=== PATIENT | female | born 1970 | race Caucasian/White ===

== ENCOUNTER 2016-11-16 06:21 | Day surgery (SDC) | payer BC ==
[~2016-11-16 06:21] MED LIST: LIDOCAINE W/ SODIUM BICARB 0.5 ML SYR ONE; Lactated Ringers 2,000 ML PRIMARY IV ONE; Sodium Chloride 0.9% 100 ML IV ONE
[2016-11-16 06:41] LABS: BILIRUBIN,URINE NEGATIVE (NEG); CLARITY,URINE CLEAR (CLEAR); COLOR,URINE YELLOW; GLUCOSE, URINE (UA) NEGATIVE (NEG); NITRATE,URINE NEGATIVE (NEG); OCCULT BLOOD,URINE NEGATIVE (NEG); PH,URINE 5.5 (5.0-8.5); PROTEIN,URINE NEGATIVE (NEG); UROBILINOGEN,URINE 0.2 EU/dL (0.2)
[2016-11-16] MEDS ORDERED: BUPIVACAINE 0.25% W/ EPI - 10 ML VIAL ONE (06:42)
[2016-11-16 06:45] LABS: BACTERIA,URINE MODERATE; RBC,URINE 0-1 /hpf; SQUAMOUS EPITHELIAL CELL,UR MANY
[2016-11-16 06:46] LABS: URINE SAMPLE TYPE CLEAN CATCH URINE
[2016-11-16] MEDS ORDERED: fentaNYL Inj 250 MCG/5 ML VIAL ONE ×2 (07:03→12:09)
[2016-11-16] MEDS ORDERED: LIDOCAINE MPF 2% - 5 ML (20 MG/1 ML) ONE (07:03)
[2016-11-16] MEDS ORDERED: DEXAMETHASONE SOD PHOSPHATE 4 MG/1 ML VIAL ONE (07:03)
[2016-11-16] MEDS ORDERED: MIDAZOLAM 5 MG/1 ML ONE (07:03)
[2016-11-16] MEDS ORDERED: ROCURONIUM 10 MG/1 ML - 5 ML VIAL IVP ONE (07:04)
[2016-11-16 07:08] LABS: HEMATOCRIT 41.1 % (37.0-47.0); HEMOGLOBIN 14.2 g/dL (12.0-16.0)
[2016-11-16] MEDS ORDERED: KETAMINE 100 MG/1 ML - 5 ML ONE (08:12)
[2016-11-16] MEDS ORDERED: HYDROmorphone 2 MG/1 ML ONE (08:12)
[2016-11-16] MEDS ORDERED: NORMAL SALINE 10 ML SYRINGE FLUSH IVP PRN ×2 (08:31→09:21)
[2016-11-16] MEDS ORDERED: PROMETHAZINE 25 MG/1 ML VIAL IM PRN (08:31)
[2016-11-16] MEDS ORDERED: HYDROmorphone 2 MG/1 ML IVP PRN (08:31)
[2016-11-16] MEDS ORDERED: LIDOCAINE HCL 2 % 10 ML JELLY URO-JECT TOPICAL ONE (08:40)
[2016-11-16] MEDS ORDERED: Opium-Belladonna 30-16.2mg 1 EACH SUPP.RECT RECTAL ONE (08:40)
[2016-11-16] MEDS ORDERED: Lactated Ringers 1,000 ML PRIMARY IV SCH (08:45)
[2016-11-16] MEDS ORDERED: SUGAMMADEX SODIUM 200 MG/2 ML VIAL IV ONE (08:55)
[2016-11-16] MEDS ORDERED: KETOROLAC 30 MG/1 ML VIAL ONE (08:55)
[2016-11-16] MEDS ORDERED: ONDANSETRON 4 MG/2 ML VIAL ONE ×2 (08:55→11:31)
[2016-11-16] MEDS ORDERED: Lactated Ringers 2,000 ML PRIMARY IV ONE (09:17)
[2016-11-16] MEDS ORDERED: IBUPROFEN 800 MG TABLET PO PRN (09:21)
[2016-11-16] MEDS ORDERED: Ondansetron ODT Tab 8 MG TAB PO PRN (09:21)
[2016-11-16] MEDS ORDERED: KETOROLAC 30 MG/1 ML VIAL IVP PRN (09:21)
--- NOTE | 2016-11-16 09:26 | OB.OP.NOTE ---
Operative Report Surgeon: Viv Heel Sorter: Jacob Monsivais MD Anesthesia Type: General Anesthesia Provider: Flex Qureshi CRNA Surgery Date: 11/16/16 Preoperative Diagnosis: MMR/Dysmenorrhea Postoperative Diagnosis: Same Procedure: da Rico Hysterectomy/Bilateral Salpingectomy/Cystoscopy Estimated Blood Loss (mL): 50 Fluids: 2200 ml Complications: None Findings at Surgery: Normal size uterus. Tubes with clips applied. No visible evidence of bowel, bladder, or ureter injury. Both ureters ejected urine at cysto, and bladder integrity was confirmed. Indications for the Procedure: MMR/Dysmenorrhea Description of Procedure: See dictated operative report. Plan: Routine post op care and discharge to home.
[2016-11-16 09:52] VITALS: RESP 14
[2016-11-16] MEDS ORDERED: oxyCODONE-ACETAMINOPHEN 5-325 TAB PO ONE ×3 (10:03→11:35)
[2016-11-16] MEDS: oxyCODONE-ACETAMINOPHEN 5-325 TAB PO PRN ×2 (10:05→11:45)
[2016-11-16] MEDS ORDERED: ONDANSETRON 4 MG/2 ML VIAL IVP ONE (11:35)
[2016-11-16] MEDS ORDERED: Lactated Ringers 1,000 ML PRIMARY IV ONE (12:09)
[2016-11-16] MEDS: fentaNYL Inj 100 MCG/2 ML VIAL IVP PRN ×2 (12:15→13:40)
[2016-11-16] MEDS ORDERED: PROMETHAZINE 25 MG/1 ML VIAL IM ONE (13:21)
[2016-11-16] MEDS ORDERED: HYDROcodone-APAP 7.5 MG-325 MG TABLET PO ONE ×2 (13:41→13:44)
[2016-11-16 15:15] VITALS: TEMP 97.9
[2016-11-16] MEDS ORDERED: DOCUSATE 100 MG CAPSULE PO SCH (21:00)
== END 2016-11-16 15:02 | disposition home or self-care (01) ==
LOC: SDSC 06:21
PROVIDERS: ATTEND Obstetrics & Gynecology
DX: N92.1 Excessive and frequent menstruation with irregular cycle (principal); N94.6 Dysmenorrhea, unspecified
CPT/HCPCS: 52000; 58552; 81001; 84703; 85014; 85018; J0694; J1885; J2704; J3010; J1100; J1170; J2001; J2250; J2405; J2550; J7050; J7120

== ENCOUNTER 2016-11-16 21:15 | Inpatient (IN) | payer BC ==
[2016-11-16] MEDS ORDERED: NORMAL SALINE 10 ML SYRINGE FLUSH IVP PRN (21:45)
[2016-11-16] MEDS ORDERED: Sodium Chloride 0.9% 1,000 ML PRIMARY IV ONE (21:45)
[2016-11-16] MEDS ORDERED: PROMETHAZINE 25 MG/1 ML VIAL IM ONE (21:45)
[2016-11-16] MEDS ORDERED: ONDANSETRON 4 MG/2 ML VIAL ONE (21:46)
[2016-11-16] MEDS ORDERED: HYDROmorphone 2 MG/1 ML IVP ONE (21:46)
[2016-11-16] MEDS ORDERED: HYDROmorphone 2 MG/1 ML ONE (21:49)
[2016-11-16 22:04] LABS: BASOPHILS # (AUTO) 0.01 10*3/UL; BASOPHILS % (AUTO) 0.1 % (0-1); EOSINOPHILS # (AUTO) 0 10*3/UL; EOSINOPHILS % (AUTO) 0 % (0-8); HEMATOCRIT 38.3 % (37.0-47.0); HEMOGLOBIN 13.4 g/dL (12.0-16.0); LYMPHOCYTES # (AUTO) 0.58 10*3/uL; MEAN CORPUSCULAR HEMOGLOBIN 30.4 PG (27-31); MEAN CORPUSCULAR VOLUME 86.8 FL (81-99); MEAN PLATELET VOLUME 8.3 FL (7.4-12.2); MONOCYTES # (AUTO) 1.24 10*3/UL (0.3-0.8); MONOCYTES % (AUTO) 6.3 % (5-15); NEUTROPHILS # (AUTO) 17.97 10*3/UL; NEUTROPHILS % (AUTO) 90.5 % (50-80); RED BLOOD COUNT 4.41 10^6/uL (4.20-5.40)
[2016-11-16 22:05] LABS: PLATELET MORPHOLOGY COMMENT NORMAL MORPHOLOGY (NORM); RBC MORPHOLOGY COMMENT NORMAL MORPHOLOGY (NORM); WBC MORPHOLOGY COMMENT NORMAL MORPHOLOGY (NORM)
[2016-11-16 22:14] LABS: BLOOD UREA NITROGEN 9 mg/dL (7-22); BUN/CREATININE RATIO 12.85 (6-20); CALCIUM 8.6 mg/dL (8.7-10.7); EST GLOMERULAR FILTRATION > 60 (>60 ml/min/1.73m(2)); LIPASE 128 IU/L (23-300)
--- NOTE | 2016-11-16 22:53 | DI ---
CT ABD W/CN AND PELVIS W/CN,11/16/2016 9:47 PM: Clinical History: Abdominal pain status post robotic hysterectomy today. Previous Exam: None available. Findings: Multiple helically acquired CT images are obtained through the abdomen following the intravenous admi nistration of contrast, and demonstrate some free fluid in the deep pelvis. There is also some free a ir noted throughout the abdomen consistent with recent postsurgical changes. Subsegmental atelectasis is noted in the lung bases. The gallbladder is unremarkable. The spleen, pancreas and adrenals are unremarkable. Postsurgical changes are noted around the left kidney with some mild hydronephrosis, but no significa nt hydroureter. Skeletal structures are unremarkable. The distal ureters are not seen. Impression: 1. Fluid within the abdomen. This could simply represent postsurgical changes. Cannot completely rule out the possibility of a ureteral injury although there is no other evidence of ureteral injury only the free fluid. This should be able to be confirmed or ruled out based on serum creatinine level. 2. Subsegmental atelectasis.
[2016-11-16 22:56] LABS: BILIRUBIN,URINE NEGATIVE (NEG); COLOR,URINE YELLOW; GLUCOSE, URINE (UA) NEGATIVE (NEG); NITRATE,URINE NEGATIVE (NEG); OCCULT BLOOD,URINE SMALL (NEG); PROTEIN,URINE NEGATIVE (NEG); UROBILINOGEN,URINE 0.2 EU/dL (0.2)
[2016-11-16 22:59] LABS: CLARITY,URINE CLEAR (CLEAR)
[2016-11-16 23:00] LABS: URINE SAMPLE TYPE CATH SPECIMEN
[2016-11-16 23:02] LABS: SQUAMOUS EPITHELIAL CELL,UR FEW
[2016-11-16] MEDS ORDERED: MORPHINE SULFATE 2 MG/1 ML IV PRN (23:24)
[2016-11-16] MEDS ORDERED: Zolpidem Tab 5 MG TAB PO PRN (23:24)
[2016-11-17] MEDS: Sodium Chloride 0.9% 1,000 ML PRIMARY IV SCH ×3 (00:30→15:34)
[2016-11-17] MEDS: NORMAL SALINE 10 ML SYRINGE FLUSH IVP PRN ×2 (00:30→03:09)
[2016-11-17] MEDS: HYDROmorphone 2 MG/1 ML IVP PRN ×7 (01:09→08:14)
[2016-11-17] MEDS: ONDANSETRON 4 MG/2 ML VIAL IVP PRN ×2 (01:17→08:44)
--- NOTE | 2016-11-17 01:35 | PDOC ---
Abdomen/Flank HPI - General Chief Complaint: General Medical Stated Complaint: UNCONTROLLED POST OP PAIN Date Seen by Provider: 11/16/16 Time Seen by Provider: 21:30 Source: POSITIVE: Patient, RN/, Old records Exam Limitations: POSITIVE: No limitations Nurse's Notes Reviewed & Considered: Yes - History of Present Illness Initial Comments: The patient is a 45-year-old female who is brought to the emergency room by her mother. Patient had a hysterectomy this afternoon by the da Rico robotic system. She states she was discharged around 1630. Very shortly after discharge she began to have poorly localized abdominal pain. This is gradually become worse over the intervening 5 hours. Patient has had no other abdominal surgery except for surgery to her left ureter. Patient is also had some nausea and vomiting. No known fevers or chills. No diarrhea, melena, hematochezia, hematemesis, dysuria or hematuria. Body Location Affected: REPORTS: Abdomen Timing: REPORTS: Gradual, Getting Worse Duration: 4-6 hours Severity: Moderate Quality: REPORTS: "Pain" Abdominal Pain Onset Location: REPORTS: Generalized abdomen Abdominal Pain Radiation: REPORTS: No radiation Context: REPORTS: Recent Surgery (As above) Modifying Factors: improves with: Palpation, Movement Associated Symptoms: REPORTS: Nausea, Vomiting. DENIES: Denies symptoms, Back pain, Bloody Emesis, Chest pain, Coffee Grounds Emesis, Chills, Diaphoresis, Fever, Fatigue, Headache, Heartburn, Loss of Appetite, Rash, Shortness of breath , Swelling/mass in abdomen, Syncope, Testicular Pain, Weakness, Grossly Bloody Diarrhea, Constipation, Diarrhea, Dysuria, Incontinent Stool, Incontinent Urine , Mucous Diarrhea, Difficulty Walking, Dizziness, Light Headedness, Numbness, Other Similar Symptoms Previously: No Recent Care Received: REPORTS: Recently Seen, Treated by MD, Surgery ( Robotically assisted hysterectomy earlier today) Any Prior Injuries Related to Current Complaint?: No - Patient Home Medications Home Medications: Home Medications .No Home Meds 12/06/12 Docusate Sodium [Colace] 100 mg PO BID #60 cap 11/16/16 Hydrocodone Bit/Acetaminophen [[place] 7.5-325 Tablet] 1 tab PO Q4-6H #40 tab Ibuprofen [Motrin] 800 mg PO Q8H PRN #60 tab 11/16/16 Ondansetron Odt [Zofran Odt] 8 mg PO Q6H PRN #5 tab 11/16/16 - Patient Allergies Allergies/Adverse Reactions: Allergies Allergy/AdvReac Type Severity Reaction Status Date / Time acetaminophen [From Percocet] AdvReac VOMITING Verified 11/16/16 15:10 oxycodone HCl [From Percocet] AdvReac VOMITING Verified 11/16/16 15:10 Past Medical History - heen HEENT History: Denies History Cardiovascular History: Denies History Respiratory History: Denies History Gastrointestinal History: Denies History Genitourinary History: Denies History Endocrine History: Denies History Musculoskeletal History: Denies History, Limited ROM, Joint Pain Prosthesis or Implant: Yes (NECK) Neurological History: Denies History Blood Disorders: Denies History Psychiatric History: Denies History History of Sexually Transmitted Diseases: No Female Reproductive History: Denies History Obstetrical History: Denies History Cancer History: Denies History In Past Year Been Physically Harmed or Verbally Threatened: No History of MDRO: No History of Other Communicable Diseases: No Tobacco Use: Never Smoker Alcohol Use: Occasionally Type of alcohol normally used: Hard Liquor How much alcohol do you normally drink a day?: 2-3 drinks/wk Substance Use Type: None Previous Surgical History: Yes Type / Date of Surgery: C4-5 CERVICAL DISCECTOMY AND FUSION/ LEFT KNEE SCOPE/ BILAT SHOULDER SCOPE/ LEFT URETER REPAIRED/ LFT GREAT TOE BUNIONECTOMY/ TUBAL Anesthesia Reactions: No Malignant Hyperthermia: No Significant Family History: No pertinent family hx Past Medical History Reviewed: Reviewed - No Changes ROS - Limitations ROS Limitations: No Limitations Constitution: REPORTS: Denies Symptoms Cardiovascular: REPORTS: Denies Cardiac Symptoms Respiratory: REPORTS: Denies Resp Symptoms, Hurts To Breathe (Deep inspiration produces some abdominal pain; no chest pain) Neurological: REPORTS: Denies Neuro Symptoms Gastrointestinal: REPORTS: Abdominal Pain, Nausea, Vomitting Endocrine: REPORTS: Denies Symptoms Musculoskeletal: REPORTS: Denies MS Symptoms Genitourinary: REPORTS: Denies Symptoms Eyes: REPORTS: Denies Symptoms ENT: REPORTS: Denies Symptoms Skin: REPORTS: Denies Skin Symptoms Lympathic: REPORTS: Denies Lympathic Symptoms Immunologic: POSITIVE: Denies Symptoms Psychiatric: POSITIVE: Anxiety Abdominal/Flank Pain PE - General Appearance General Appearance: POSITIVE: Alert, Cooperative, No Acute Distress, No Evidence of Trauma - HEENT HEENT: POSITIVE: Head Inspection Nml, Eyes Inspection Nml, Ears Inspection Nml, Nose Inspection Nml, Oral/Dental Inspect. Nml, Pharynx Inspect. Nml, PERRL, EOMI - Neck Neck: POSITIVE: Normal Inspection, No Apparent Injury - Respiratory Respiratory: POSITIVE: No Respiratory Distress, Breath Sounds Normal, Chest Non- Tender - Cardiovascular Cardiovascular: POSITIVE: Regular Rate and Rhythm, Heart Sounds Normal, Equal Pulses, Strong Pulses Peripheral Pulses: Radial (R): 2+, Radial (L): 2+ - Chest Chest: POSITIVE: Non Tender - Abdomen Abdomen: Normal Bowel Sounds: (All Quadrants), No Splenomegaly: (All Quadrants) , No Hepatomegaly: (All Quadrants), No Guarding: (All Quadrants), No Rebound: ( All Quadrants), No Palpable Pulse: (All Quadrants), No Palpabale Mass: (All Quadrants), No Distention: (All Quadrants), No Rigidity: (All Quadrants), Tenderness Noted: (RUQ), (LUQ), (RLQ), (LLQ) Additional Abdominal Details: Abdominal examination shows bowel sounds to be present. Patient expresses pain , poorly localized, on palpation diffusely over abdomen. No masses or organomegaly; equivocal rebound. Laparoscopy puncture gu on anterior abdomen clean with no bleeding or signs of infection. 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 Free air compatible with recent laparoscopic procedure. Mild left hydronephrosis with no associated hydroureter. Lab Results Reviewed: Yes Lab Results:: Laboratory Results 11/16/16 11/16/16 Range/Units 22:01 22:45 WBC 19.84 H (4.8-10.8) 10^3/uL RBC 4.41 (4.20-5.40) 10^6/uL Hgb 13.4 (12.0-16.0) g/dL Hct 38.3 (37.0-47.0) % MCV 86.8 (81-99) FL MCH 30.4 (27-31) PG MCHC 35.0 (33-37) g/dL RDW Std Deviation 37.9 L (39-50) fL RDW Coeff of Dirk 12.3 (11.5-14.5) % Plt Count 323 (140-350) 10*3/uL MPV 8.3 (7.4-12.2) FL Immature Gran % (Auto) 0.2 (0-5) % Neut % (Auto) 90.5 H (50-80) % Lymph % (Auto) 2.9 L (10-50) % [place] % (Auto) 6.3 (5-15) % Eos % (Auto) 0 (0-8) % Baso % (Auto) 0.1 (0-1) % Immature Gran # (Auto) 0.04 10*3/UL Neut # (Auto) 17.97 10*3/UL Lymph # (Auto) 0.58 10*3/uL [place] # (Auto) 1.24 H (0.3-0.8) 10*3/UL Eos # (Auto) 0 10*3/UL Baso # (Auto) 0.01 10*3/UL WBC Morphology Comment Normal morphology (NORM) Plt Morphology Comment Normal morphology (NORM) RBC Morph Comment Normal morphology (NORM) Sodium 132 L (135-145) meq/L Potassium 3.9 (3.8-5.2) meq/L Chloride 102 (98-112) meq/L Carbon Dioxide 20 L (23-33) meq/L Anion Gap 10 (5-20) BUN 9 (7-22) mg/dL Creatinine 0.7 (0.50-1.20) mg/dL Estimated GFR > 60 (>60 ml/min/1.73m(2)) BUN/Creatinine Ratio 12.85 (6-20) Glucose 132 H (78-110) mg/dL Calculated Osmolality 274.0 (267-292) mOsm/kg Calcium 8.6 L (8.7-10.7) mg/dL Total Bilirubin 1.0 (0.3-1.2) mg/dL AST 30 (8-39) IU/L ALT 26 (9-52) IU/L Alkaline Phosphatase 46 (38-126) IU/L Total Protein 7.2 (6.1-8.0) g/dL Albumin 4.0 (3.5-4.8) g/dL Globulin 3.2 (2.50-4.10) g/dL Albumin/Globulin Ratio 1.20 L (1.3-2.0) mg/g Amylase 169 H (30-110) U/L Lipase 128 (23-300) IU/L Ur Collection Type Cath specimen Urine Color Yellow Urine Clarity Clear (CLEAR) Urine pH 7.0 (5.0-8.5) Ur Specific [place] 1.010 (1.005-1.030) Urine Protein Negative (NEG) mg/dl Urine Glucose (UA) Negative (NEG) mg/dL Urine Ketones Trace (NEG) Urine Occult Blood Small H (NEG) Urine Nitrate Negative (NEG) Urine Bilirubin Negative (NEG) Urine Urobilinogen 0.2 (0.2) EU/dL Ur Leukocyte Esterase Negative (NEG) Urine RBC 9-14 (NONE) /hpf Urine WBC None (NONE) Ur Squamous Epith Cells Few (NONE) Ur Renal Epithelial Cell None (NONE) Urine Crystals None Urine Bacteria None (NONE) Urine Casts None (NONE) Urine Mucus Moderate (NONE) Urine Trichomonas None (NONE) Urine Yeast None (NONE) Ur Culture Indicated? Culture not set - Patient's Progress Pain Medication Addressed: POSITIVE: Yes (Patient given Dilaudid 2 mg IV with considerable relief of pain) School/Work Release Addressed: POSITIVE: Not Applicable Re-examine Time: 23:00 Re-Examine Comment: Patient states pain is less; nausea resolved. Patient still complains of pain on palpation, poorly localized throughout abdomen. Case discussed with Dr. Nam, patient's attending [employer] ANALYST physician and patient admitted by him for further evaluation and treatment. Status: POSITIVE: Improved (Pain less), Re-Examined - Consult Consult (If Yes, Name of Consulting MD & Time Called): Yes (Dr. Nam, OB/ RESERVATIONS AGENT [id number].) Consulting MD will see pt:: POSITIVE: [facility] Admit Counseled: POSITIVE: Patient, Family, RE: Lab Results, RE: Radiology Results, RE : DX, RE: Need for F/U Patient Care Time - Estimated PCT Patient Care Time (In Minutes): 50 Vital Signs - Recent Vital Signs Vital Signs: Vital Signs (Last 8 hours) Temp Pulse Pulse Resp BP BP Pulse Ox 11/17/16 00:43 98.4 F 96 20 131/75 93 11/16/16 23:58 98.4 F 91 18 122/61 93 11/16/16 21:16 96.6 F L 92 20 136/85 96 - VS Reviewed Vital Signs Reviewed: Yes Discharge Clinical Impression: Postoperative generalized abdominal pain Discharge Disposition: Admit to Inpatient Condition: Stable Date Decision to Admit to Inpatient: 11/16/16 Time Decision to Admit to Inpatient: 23:00
[2016-11-17 05:14] LABS: BASOPHILS # (AUTO) 0.01 10*3/UL; BASOPHILS % (AUTO) 0.1 % (0-1); EOSINOPHILS # (AUTO) 0.01 10*3/UL; EOSINOPHILS % (AUTO) 0.1 % (0-8); HEMATOCRIT 39.6 % (37.0-47.0); HEMOGLOBIN 13.6 g/dL (12.0-16.0); LYMPHOCYTES # (AUTO) 0.87 10*3/uL; MEAN CORPUSCULAR HEMOGLOBIN 30.2 PG (27-31); MEAN CORPUSCULAR HGB CONC 34.3 g/dL (33-37); MEAN CORPUSCULAR VOLUME 87.8 FL (81-99); MEAN PLATELET VOLUME 9.2 FL (7.4-12.2); MONOCYTES # (AUTO) 1.11 10*3/UL (0.3-0.8); MONOCYTES % (AUTO) 6.4 % (5-15); NEUTROPHILS # (AUTO) 15.41 10*3/UL; NEUTROPHILS % (AUTO) 88.2 % (50-80); RED BLOOD COUNT 4.51 10^6/uL (4.20-5.40)
[2016-11-17 05:15] LABS: PLATELET MORPHOLOGY COMMENT NORMAL MORPHOLOGY (NORM); RBC MORPHOLOGY COMMENT NORMAL MORPHOLOGY (NORM); WBC MORPHOLOGY COMMENT NORMAL MORPHOLOGY (NORM)
--- NOTE | 2016-11-17 07:51 | PDOC(PROG) ---
Subjective Post Op Day: 1 Pain Management: IV Mathias Catheter: Yes Flatus: No Diet: NPO Ambulating: Yes Concerns / Additional Information: Deborah returned to ED last night due to inadequately controlled post op pain. CT scan was done and was inconclusive. Labs were normal except WBC 18. This morning, she continues to c/o generalized abdominal pain with worse pain around the right incision site. She is slightly tachy in the 90s with normal BP and she is afebrile. WBC remains elevated at 17. Abdominal exam is significant for generalized tenderness and rigidity. Incision sites are dry. Bowel sounds are absent. A/P: Post op pain seems out of proportion. Dr. Landis consulted. May return to OR for diagnostic scope to r/o bowel injury.
[2016-11-17] MEDS: Ertapenem Inj 1 GM in Sodium Chloride 0.9% 100 ML IV SCH (08:15)
[2016-11-17] MEDS ORDERED: NALOXONE 0.4 MG/1 ML VIAL IVP PRN (08:34)
[2016-11-17] MEDS ORDERED: HYDROmorphone/PF/PCA 9 MG/30 ML IV SCH (08:45)
--- NOTE | 2016-11-17 13:40 | CONSULT ---
Consult Note - Consult Consult Date: 11/17/16 Reason for Consult: PreOp Consulation : General Surgery Requesting Physician: Dr. Rios Primary Care Provider: Usama Nam MD - History of Present Illness History of Present Illness: This is a 45-year-old female who yesterday on the October underwent a laparoscopic da Rico hysterectomy. Patient had some initial postoperative pain but was able to go home. She presents early this morning with abdominal pain. Patient states the pain starts had a right trocar site radiates to the midline. She is not nauseated but states she has a passing gas and surgery and not having a bowel movement. She also has not urinated today. Laboratory evaluation elevated white count. Her basic metabolic panel shows normal BUN/ creatinine. CT scan of the abdomen and pelvis shows some old chronic injury and surgery to the kidneys. There is no dilated distal ureter. Patient free fluid in the pelvis and a little free air but not significant. Past Medical History Tobacco Use: Never Smoker Substance Use Type: None Medication / Allergies Home Medications: Home Medications Medication Instructions Recorded Confirmed Type .No Home Meds 12/06/12 12/06/12 History Docusate Sodium [Colace] 100 mg PO BID #60 cap 11/16/16 11/16/16 Rx Hydrocodone Bit/Acetaminophen 1 tab PO Q4-6H #40 tab 11/16/16 11/16/16 Clinic [[place] 7.5-325 Tablet] Ibuprofen [Motrin] 800 mg PO Q8H PRN #60 tab 11/16/16 11/16/16 Rx Ondansetron Odt [Zofran Odt] 8 mg PO Q6H PRN #5 tab 11/16/16 11/16/16 Rx Allergies/Adverse Reactions: Allergies Allergy/AdvReac Type Severity Reaction Status Date / Time acetaminophen [From Percocet] AdvReac VOMITING Verified 11/17/16 06:29 oxycodone HCl [From Percocet] AdvReac VOMITING Verified 11/17/16 06:29 Exam - Vitals Vital Signs: Vital Signs Temperature 98.0 F Temperature Source Oral Pulse Rate [Pulse Oximeter] 119 Pulse Rate 91 Respiratory Rate 20 Blood Pressure [Right Arm] 134/90 Blood Pressure [Left Arm] 119/77 Blood Pressure 122/61 Pulse Ox 95 Oxygen Flow Rate [Right Lower 1 Abdomen] Oxygen Flow Rate 1 Oxygen Delivery Method Nasal Cannula Height 5 ft 1 in Weight 70.851 kg - General General Appearance: POSITIVE: Cooperative, Mild Distress - GI/Abdominal GI/Abdominal Exam: POSITIVE: Firm, Distended, Rebound, No Hepatomegaly, No Splenomegaly Results - Labs CBC and BMP: 11/17/16 04:47 11/16/16 22:01 Labs - Last 24 Hours: Laboratory Results 11/17/16 Range/Units 04:47 WBC 17.45 H (4.8-10.8) 10^3/uL RBC 4.51 (4.20-5.40) 10^6/uL Hgb 13.6 (12.0-16.0) g/dL Hct 39.6 (37.0-47.0) % MCV 87.8 (81-99) FL MCH 30.2 (27-31) PG MCHC 34.3 (33-37) g/dL RDW Std Deviation 39.1 (39-50) fL RDW Coeff of Dirk 12.6 (11.5-14.5) % Plt Count 353 H (140-350) 10*3/uL MPV 9.2 (7.4-12.2) FL Immature Gran % (Auto) 0.2 (0-5) % Neut % (Auto) 88.2 H (50-80) % Lymph % (Auto) 5.0 L (10-50) % [place] % (Auto) 6.4 (5-15) % Eos % (Auto) 0.1 (0-8) % Baso % (Auto) 0.1 (0-1) % Immature Gran # (Auto) 0.04 10*3/UL Neut # (Auto) 15.41 10*3/UL Lymph # (Auto) 0.87 10*3/uL [place] # (Auto) 1.11 H (0.3-0.8) 10*3/UL Eos # (Auto) 0.01 10*3/UL Baso # (Auto) 0.01 10*3/UL WBC Morphology Comment Normal morphology (NORM) Plt Morphology Comment Normal morphology (NORM) RBC Morph Comment Normal morphology (NORM) Assessment and Plan - Patient Problems (1) Postoperative generalized abdominal pain Current Visit: Yes Status: Acute - Assessment / Plan Additional Assessment/Plan Details: At this point the patient does have postoperative pain and an ileus. Questions whether or not there is anything intra-abdominal going on such as a perforated bowel. Normal BUN and creatinine and CT scan show no dilated ureters makes it unlikely ureter injury. Patient may have a bladder injury. Also with doing the da Rico hysterectomy there could be just Dermabond was causing a paralytic ileus. At this point I do think the patient needs be on antibiotics in follow- up examinations. The patient's white count is getting better will continue on antibiotic therapy. The patient's condition deteriorates are gets worse we may have to do an exploratory laparoscopic examination. Patient is not better in 24 hours repeat CAT scan with some rectal and IV contrast.
[2016-11-17 14:15] LABS: HEMATOCRIT 40.2 % (37.0-47.0); HEMOGLOBIN 13.7 g/dL (12.0-16.0); MEAN CORPUSCULAR HEMOGLOBIN 30.4 PG (27-31); MEAN CORPUSCULAR HGB CONC 34.1 g/dL (33-37); MEAN CORPUSCULAR VOLUME 89.1 FL (81-99); MEAN PLATELET VOLUME 8.5 FL (7.4-12.2); RED BLOOD COUNT 4.51 10^6/uL (4.20-5.40)
[2016-11-17 14:20] LABS: BLOOD UREA NITROGEN 11 mg/dL (7-22); BUN/CREATININE RATIO 13.75 (6-20); CALCIUM 8.3 mg/dL (8.7-10.7); EST GLOMERULAR FILTRATION > 60 (>60 ml/min/1.73m(2))
[2016-11-17 14:51] LABS: BAND NEUTROPHILS % 0 % (0-10); BASOPHILS % (MANUAL) 0 % (0-1); EOSINOPHILS % (MANUAL) 0 % (0-8); LYMPHOCYTES % (MANUAL) 14 % (10-50); METAMYELOCYTES % 0 %; MONOCYTES % (MANUAL) 1 % (0-12); MYELOCYTES % 0 %; NEUTROPHILS % (MANUAL) 85 % (50-80); PLATELET MORPHOLOGY COMMENT NORMAL MORPHOLOGY (NORM); PROMYELOCYTES % 0 %; RBC MORPHOLOGY COMMENT NORMAL MORPHOLOGY (NORM); WBC MORPHOLOGY COMMENT SEE COMMENTS (NORM)
--- NOTE | 2016-11-17 15:02 | PDOC(PROG) ---
Subjective Post Op Day: 1 Pain Management: Peripheral JAPANESE INTERPRETER Riddle Catheter: Yes Flatus: No Diet: NPO Ambulating: No Concerns / Additional Information: General surgery consult noted. The patient is doing a bit better on JAPANESE INTERPRETER analgesia and after insertion of the riddle catheter to drain her distended bladder. Urine is concentrated but not bloody. She remains afebrile with normal pulse and BP. Abdominal exam is unchanged. Repeat CBC shows slowly decreasing WBC and normal H/H. Creatinine remains normal at 0.8. A/P: Post op pain and ileus of uncertain etiology. Plan continued observation and NPO with abx. If condition deteriorates, will need to explore the abdomen surgically.
[2016-11-17] MEDS ORDERED: Sodium Chloride 0.9% 1,000 ML PRIMARY IV SCH (15:20)
[2016-11-17] MEDS ORDERED: Sodium Chloride 0.9% 1,000 ML PRIMARY IV ONE (15:22)
--- NOTE | 2016-11-17 20:51 | PDOC(PROG) ---
Subjective Post Op Day: 1 Pain Management: Peripheral [employer]MIN[employer]IVE [employer]ITLES Mathias Catheter: Yes Flatus: No Diet: NPO Ambulating: Yes Concerns / Additional Information: Pt. was able to walk around the room this evening. She has had no emesis since this AM. Her pain is improved, though still present. No flatus. AVSS Abdomen softer than previous exam. Still guarding. A/P: Post op pain, ileus and distention slowly improving. Continue observation with NPO and abx. Re-check CBC and BMP in the AM.
[2016-11-18] MEDS: Sodium Chloride 0.9% 1,000 ML PRIMARY IV SCH ×3 (02:19→15:31)
[2016-11-18] MEDS: HYDROmorphone 2 MG/1 ML IVP PRN (02:26)
[2016-11-18 05:58] LABS: HEMATOCRIT 33.8 % (37.0-47.0); HEMOGLOBIN 11.3 g/dL (12.0-16.0); MEAN CORPUSCULAR HEMOGLOBIN 30.5 PG (27-31); MEAN CORPUSCULAR HGB CONC 33.4 g/dL (33-37); MEAN CORPUSCULAR VOLUME 91.1 FL (81-99); MEAN PLATELET VOLUME 8.7 FL (7.4-12.2); RED BLOOD COUNT 3.71 10^6/uL (4.20-5.40)
[2016-11-18 06:11] LABS: BLOOD UREA NITROGEN 9 mg/dL (7-22); BUN/CREATININE RATIO 12.85 (6-20); CALCIUM 7.7 mg/dL (8.7-10.7); EST GLOMERULAR FILTRATION > 60 (>60 ml/min/1.73m(2))
[2016-11-18 06:13] LABS: BAND NEUTROPHILS % 5 % (0-10); NEUTROPHILS % (MANUAL) 74 % (50-80); PLATELET MORPHOLOGY COMMENT NORMAL MORPHOLOGY (NORM); RBC MORPHOLOGY COMMENT NORMAL MORPHOLOGY (NORM); WBC MORPHOLOGY COMMENT NORMAL MORPHOLOGY (NORM)
[2016-11-18 06:14] LABS: BASOPHILS % (MANUAL) 0 % (0-1); EOSINOPHILS % (MANUAL) 0 % (0-8); LYMPHOCYTES % (MANUAL) 11 % (10-50); MONOCYTES % (MANUAL) 10 % (0-12)
[2016-11-18] MEDS: Ertapenem Inj 1 GM in Sodium Chloride 0.9% 100 ML IV SCH (08:10)
--- NOTE | 2016-11-18 09:20 | PDOC(PROG) ---
Subjective Post Op Day: 2 Pain Management: Peripheral TAFFY CANDY MAKER Mathias Catheter: Yes Flatus: No Diet: NPO Ambulating: Yes Concerns / Additional Information: Pain is improved with TAFFY CANDY MAKER, but still present. No vomitting since yesterday morning, but still belching quite a bit. Ambulating in the room well. Afebrile with normal BP. Still slightly tachy. Good UO. Abdomen remains fairly firm with minimal bowel sounds and diffuse tenderness. Wounds remain dry. WBC remains elevated at 18 with no left shift. Hemoglobin dropped 2 grams since yesterday. BUN/creatinine remain normal. A/P: Minimal improvement after over 24 hours of observation and abx. Discussed options with the patient including continued observation vs. laparoscopy to evaluate what is going on. Recommend LS and she agrees. Will proceed with Dx LS with possible exploratory laparotomy if indicated as soon as an OR is available.
[2016-11-18] MEDS ORDERED: ROCURONIUM 10 MG/1 ML - 5 ML VIAL IVP ONE ×2 (10:14→12:04)
[2016-11-18] MEDS ORDERED: MIDAZOLAM 5 MG/1 ML ONE ×3 (10:16→19:54)
[2016-11-18] MEDS ORDERED: fentaNYL Inj 250 MCG/5 ML VIAL ONE (10:16)
[2016-11-18] MEDS ORDERED: LIDOCAINE MPF 2% - 5 ML (20 MG/1 ML) ONE (10:16)
[2016-11-18] MEDS ORDERED: LIDOCAINE W/ SODIUM BICARB 0.5 ML SYR ONE (10:48)
[2016-11-18] MEDS ORDERED: BUPIVACAINE 0.25% W/ EPI - 10 ML VIAL ONE (10:50)
[2016-11-18] MEDS ORDERED: Sodium Chloride 0.9% 1,000 ML ONE ×3 (11:42→12:43)
[2016-11-18] MEDS ORDERED: HYDROmorphone 2 MG/1 ML ONE (11:44)
[2016-11-18] MEDS ORDERED: KETAMINE 100 MG/1 ML - 5 ML ONE (11:56)
[2016-11-18] MEDS ORDERED: SUGAMMADEX SODIUM 200 MG/2 ML VIAL IV ONE (12:58)
[2016-11-18] MEDS ORDERED: ONDANSETRON 4 MG/2 ML VIAL ONE (12:58)
[2016-11-18] MEDS ORDERED: NORMAL SALINE 10 ML SYRINGE FLUSH IVP PRN ×2 (13:25→14:44)
[2016-11-18] MEDS ORDERED: PROMETHAZINE 25 MG/1 ML VIAL IM PRN (13:25)
[2016-11-18] MEDS ORDERED: HYDROmorphone 2 MG/1 ML IVP PRN (13:25)
[2016-11-18] MEDS ORDERED: fentaNYL Inj 100 MCG/2 ML VIAL IVP PRN (13:25)
[2016-11-18] MEDS ORDERED: Lactated Ringers 1,000 ML PRIMARY IV SCH (13:30)
[2016-11-18] MEDS ORDERED: Acetaminophen 1000mg Inj 1,000 MG in Premix 1 BAG IV PRN ×2 (13:31→14:44)
[2016-11-18] MEDS ORDERED: Acetaminophen 1000mg Inj 100 ML IV ONE (13:48)
--- NOTE | 2016-11-18 14:11 | GEN.OPNOTE ---
Operative Note Surgery Date: 11/18/16 Preoperative Diagnosis: peritonitis Postoperative Diagnosis: Perforated small bowel Procedure: Small bowel resection with primary anastomosis Surgeon: Bolivar Landis MD Datastage Consultant: Usama Nam MD Anesthesia Provider: Flex Qureshi CRNA Anesthesia Type: General Estimated Blood Loss (mL): 5 Fluids: LR please see anesthesia notes in EMR Pathology: Small bowel sent Indications: Patient status post laparoscopic hysterectomy and has developed postoperative pain and peritonitis. Patient initially was managed with antibiotics and conservative therapy but she had a persistent elevated white count and her pain was not really getting any better therefore is felt she needed to have exploratory laparoscopy Findings: Patient had 2 perforations of the small bowel small bowel perforation Complications: None Operative Summary: Patient is brought in operative room. Given general trach anesthesia. Was placed in dorsolithotomy position. Prepped draped sterile fashion. Timeout performed per protocols. Because of the patient's abdominal distention is felt best do a direct cutdown to put laparoscopic ports in. Small incision was opened up from her previous surgery. This was enlarged. Blunt dissection was carried down through the subcutaneous tissue with blunt dissection. The fascia was then sharply opened. We then bluntly dissection posterior sheath into the peritoneal cavity. Placed us on cannula and. Insufflated the abdomen. Placed lab scopic scope and we found what appeared to be some purulent material and some adhesions. Is felt best that the patient needed a laparotomy therefore I removed the trocar. We then made a midline incision below the umbilicus. Opened the fascia with electrocautery. Is no the patient had what appeared to be small bowel contents. We then focused on the area of inflammation on the small bowel. I found the patient to have 2 small holes in the small bowel. 1 in the anti-mesentery border 1 the mesenteric border of the small bowel. I then made a small defect in the mesentery of the small bowel place the TLC stapler and fired the stapler both sides of the perforations. Clamp divided the mesentery of the small bowel. Tied off with 2-0 Vicryl sutures. Then we placed the antimesenteric borders next to each other opened the antimesenteric border of the staple lines and completed the anastomosis using the T LC 35 stapler. We inspected the staple line from inside the small small bowel she had one small bleeder that was controlled using a 2-0 Vicryl pop-off suture. Completed the anastomosis with a TXA 60 stapler . We then removed additional inflammatory exudate from the bowel. I cannot find any other additional injuries small bowel. The sigmoid colon appeared to be unharmed along with the cecum. We irrigated until clear. Could find no additional small bowel contents of abdominal cavity. Therefore is felt safe to close the patient. We closed the posterior sheath with 0 Vicryl continues running suture. Anterior fascia was closed with 0 Prolene stitches running suture. We irrigated the subcutaneous tissue. I closed the skin with skin martina Steri-Strips applied sterile dressings applied. Patient transferred recovery room in stable stable condition. Although counts were correct converting from laparoscopic to open seizures felt we might not have accurate counts therefore abdominal x-rays were obtained after the procedure and show no retained surgical objects. Patient Problems - Patient Problem List (1) Postoperative generalized abdominal pain Current Visit: Yes Status: Acute
[2016-11-18] MEDS ORDERED: NALOXONE 0.4 MG/1 ML VIAL IVP PRN ×2 (14:44)
[2016-11-18] MEDS ORDERED: HYDROmorphone/PF/PCA 9 MG/30 ML IV SCH ×2 (14:44→17:07)
[2016-11-18] MEDS: Lactated Ringers 1,000 ML PRIMARY IV SCH ×2 (14:54→21:40)
[2016-11-18] MEDS ORDERED: LORazepam 2 MG/1 ML VIAL ONE (17:07)
[2016-11-18] MEDS: LORazepam 2 MG/1 ML VIAL IVP PRN (17:13)
[2016-11-18] MEDS: KETOROLAC 30 MG/1 ML VIAL IVP PRN (17:20)
[2016-11-18] MEDS ORDERED: fentaNYL Inj 100 MCG/2 ML VIAL ONE ×2 (18:01→19:54)
[2016-11-18] MEDS ORDERED: ONDANSETRON 4 MG/2 ML VIAL IVP PRN (19:03)
[2016-11-18] MEDS ORDERED: Fent/Bupiv 2mcg/0.0625% Epid 250 ML ONE (20:38)
--- NOTE | 2016-11-18 21:05 | CRNA.PROCE ---
Central Neuraxis Block Placemt - - Safety Measures: Time Out Taken, Site Verified - - Type of Block: Epidural Reason for Block: Analgesia Moniters Used During Block: EKG, SPO2, NIBP Sedation Used - Enter Amount Used in Comment Field: Midazolam (mg): Yes (2mg), Fentanyl (mcg): Yes (100mcg) Positioning: Sitting Skin Prep Used: Betadine Draped: Yes Skin Infiltration - Enter Amount Used in Comment Field: 1% Xylocaine (mL): Yes ( skin wheal) Introducer User: 18 Gauge Jill Local Anesthetic - Enter Amount Used in Comment Field: 1.5 % Xylocaine with Epinephrine 1:200,000 (mL): Yes (5ml Test Dose Neg) Number of Centimeters Catheter Threaded: 3 Bioclusive Dressing Applied: Yes - - Additional Details: Anesthesia consult from General Surgery for uncontrolled post operative pain, requesting epidural analgesia. Discussed risks and benefits in depth with pt and family, she wishes to proceed. Full monitors, sitting, landmarks id'd, betadine prep, drape and skin wheal at L3-4. #18 Hustead passed and crisp MATTIE to saline first pass. Cath easily 4cm, and heme noted. Flushed cath and heme returned. Removed catheter and replaced it at same site with 3cm threaded, neg for heme and 5ml test dose neg. Cath secured and PCEA infusion started. General Surgery and Gynecology are aware of the order changes.
[2016-11-19] MEDS: Lactated Ringers 1,000 ML PRIMARY IV SCH ×3 (04:01→19:09)
[2016-11-19 05:58] LABS: HEMATOCRIT 30.7 % (37.0-47.0); HEMOGLOBIN 10.2 g/dL (12.0-16.0); MEAN CORPUSCULAR HEMOGLOBIN 30.3 PG (27-31); MEAN CORPUSCULAR HGB CONC 33.2 g/dL (33-37); MEAN CORPUSCULAR VOLUME 91.1 FL (81-99); MEAN PLATELET VOLUME 9.1 FL (7.4-12.2); RED BLOOD COUNT 3.37 10^6/uL (4.20-5.40)
[2016-11-19 06:11] LABS: BLOOD UREA NITROGEN 7 mg/dL (7-22); CALCIUM 7.4 mg/dL (8.7-10.7); EST GLOMERULAR FILTRATION > 60 (>60 ml/min/1.73m(2)); SERUM ALBUMIN 2.1 g/dL (3.5-4.8)
[2016-11-19 06:15] LABS: NEUTROPHILS % (MANUAL) 81 % (50-80)
[2016-11-19 06:16] LABS: BAND NEUTROPHILS % 8 % (0-10); BASOPHILS % (MANUAL) 0 % (0-1); EOSINOPHILS % (MANUAL) 0 % (0-8); LYMPHOCYTES % (MANUAL) 7 % (10-50); MONOCYTES % (MANUAL) 4 % (0-12); PLATELET MORPHOLOGY COMMENT NORMAL MORPHOLOGY (NORM); RBC MORPHOLOGY COMMENT NORMAL MORPHOLOGY (NORM); WBC MORPHOLOGY COMMENT NORMAL MORPHOLOGY (NORM)
[2016-11-19] MEDS: Ertapenem Inj 1 GM in Sodium Chloride 0.9% 100 ML IV SCH (07:41)
--- NOTE | 2016-11-19 09:28 | CRNA.PROGR ---
Anesthesia Note Anesthesia Progress Note: Sitting up in bed visiting with family. She says she was able to sleep last night and her pain is well controlled. She describes it as some "gas pressure" in her upper abdominal area. The lower abd pain she had last evening is 0/10 at this time. She has motor funtion bilat though not full strength and she has coverage to approx T8. Discussed with her the plan of leaving the epidural in place until tomorrow am. She will need to dangle and continue using her pressure hose. No change in existing orders planned at this time. Vital Signs (24 hrs) Temp Pulse Pulse Pulse Resp Resp BP 11/19/16 07:53 98.5 F 124 H 20 11/19/16 07:00 11/19/16 05:00 99.3 F 122 H 22 22 11/19/16 03:00 11/19/16 02:58 14 11/19/16 02:55 11/19/16 01:00 13 11/19/16 00:54 98.2 F 115 H 17 11/18/16 23:00 11/18/16 22:58 14 11/18/16 21:41 97.8 F 110 H 13 11/18/16 20:57 97.7 F 122 H 20 11/18/16 19:00 110 H 11/18/16 16:05 97.0 F 118 H 20 11/18/16 16:00 17 11/18/16 15:35 97.7 F 115 H 14 11/18/16 15:05 97.7 F 14 L 16 11/18/16 15:00 11/18/16 14:50 97.2 F 122 H 16 11/18/16 14:35 97.2 F 123 H 16 11/18/16 14:20 97.4 F 125 H 16 11/18/16 13:50 98.3 F 124 H 18 134/77 11/18/16 13:45 98.3 F 118 H 16 128/76 11/18/16 13:40 98.2 F 120 H 17 124/84 11/18/16 13:35 98.2 F 122 H 17 130/78 11/18/16 13:30 98.2 F 127 H 17 120/70 11/18/16 13:25 98.0 F 120 H 15 128/74 11/18/16 13:20 98.0 F 128 H 13 130/74 11/18/16 13:16 98.0 F 130 H 14 129/73 11/18/16 10:37 99.3 F 134 H 12 123/75 BP BP Pulse Ox 11/19/16 07:53 120/63 93 11/19/16 07:00 93 11/19/16 05:00 116/62 96 11/19/16 03:00 98 11/19/16 02:58 11/19/16 02:55 96 11/19/16 01:00 11/19/16 00:54 114/65 98 11/18/16 23:00 97 11/18/16 22:58 11/18/16 21:41 105/68 98 11/18/16 20:57 93/74 97 11/18/16 19:00 98 11/18/16 16:05 116/82 97 11/18/16 16:00 11/18/16 15:35 122/71 96 11/18/16 15:05 122/76 96 11/18/16 15:00 96 11/18/16 14:50 126/75 94 11/18/16 14:35 131/82 94 11/18/16 14:20 129/71 92 11/18/16 13:50 11/18/16 13:45 11/18/16 13:40 11/18/16 13:35 11/18/16 13:30 11/18/16 13:25 11/18/16 13:20 11/18/16 13:16 11/18/16 10:37 Laboratory Results 11/16/16 11/16/16 11/17/16 Range/Units 22:01 22:45 04:47 WBC 19.84 H 17.45 H (4.8-10.8) 10^3/uL RBC 4.41 4.51 (4.20-5.40) 10^6/uL Hgb 13.4 13.6 (12.0-16.0) g/dL Hct 38.3 39.6 (37.0-47.0) % MCV 86.8 87.8 (81-99) FL MCH 30.4 30.2 (27-31) PG MCHC 35.0 34.3 (33-37) g/dL RDW Std Deviation 37.9 L 39.1 (39-50) fL RDW Coeff of Dirk 12.3 12.6 (11.5-14.5) % Plt Count 323 353 H (140-350) 10*3/uL MPV 8.3 9.2 (7.4-12.2) FL Immature Gran % (Auto) 0.2 0.2 (0-5) % Neut % (Auto) 90.5 H 88.2 H (50-80) % Lymph % (Auto) 2.9 L 5.0 L (10-50) % [place] % (Auto) 6.3 6.4 (5-15) % Eos % (Auto) 0 0.1 (0-8) % Baso % (Auto) 0.1 0.1 (0-1) % Immature Gran # (Auto) 0.04 0.04 10*3/UL Neut # (Auto) 17.97 15.41 10*3/UL Lymph # (Auto) 0.58 0.87 10*3/uL [place] # (Auto) 1.24 H 1.11 H (0.3-0.8) 10*3/UL Eos # (Auto) 0 0.01 10*3/UL Baso # (Auto) 0.01 0.01 10*3/UL Neutrophils % (Manual) (50-80) % Band Neutrophils % (0-10) % Lymphocytes % (Manual) (10-50) % Monocytes % (Manual) (0-12) % Eosinophils % (Manual) (0-8) % Basophils % (Manual) (0-1) % Metamyelocytes % % Myelocytes % % Promyelocytes % % Blast Cells (0-1) % WBC Morphology Comment Normal morphology Normal morphology (NORM) Plt Morphology Comment Normal morphology Normal morphology (NORM) RBC Morph Comment Normal morphology Normal morphology (NORM) Sodium 132 L (135-145) meq/L Potassium 3.9 (3.8-5.2) meq/L Chloride 102 (98-112) meq/L Carbon Dioxide 20 L (23-33) meq/L Anion Gap 10 (5-20) BUN 9 (7-22) mg/dL Creatinine 0.7 (0.50-1.20) mg/dL Estimated GFR > 60 (>60 ml/min/1.73m(2)) BUN/Creatinine Ratio 12.85 (6-20) Glucose 132 H (78-110) mg/dL Calculated Osmolality 274.0 (267-292) mOsm/kg Calcium 8.6 L (8.7-10.7) mg/dL Total Bilirubin 1.0 (0.3-1.2) mg/dL AST 30 (8-39) IU/L ALT 26 (9-52) IU/L Alkaline Phosphatase 46 (38-126) IU/L Total Protein 7.2 (6.1-8.0) g/dL Albumin 4.0 (3.5-4.8) g/dL Globulin 3.2 (2.50-4.10) g/dL Albumin/Globulin Ratio 1.20 L (1.3-2.0) mg/g Amylase 169 H (30-110) U/L Lipase 128 (23-300) IU/L Ur Collection Type Cath specimen Urine Color Yellow Urine Clarity Clear (CLEAR) Urine pH 7.0 (5.0-8.5) Ur Specific [place] 1.010 (1.005-1.030) Urine Protein Negative (NEG) mg/dl Urine Glucose (UA) Negative (NEG) mg/dL Urine Ketones Trace (NEG) Urine Occult Blood Small H (NEG) Urine Nitrate Negative (NEG) Urine Bilirubin Negative (NEG) Urine Urobilinogen 0.2 (0.2) EU/dL Ur Leukocyte Esterase Negative (NEG) Urine RBC 9-14 (NONE) /hpf Urine WBC None (NONE) Ur Squamous Epith Cells Few (NONE) Ur Renal Epithelial Cell None (NONE) Urine Crystals None Urine Bacteria None (NONE) Urine Casts None (NONE) Urine Mucus Moderate (NONE) Urine Trichomonas None (NONE) Urine Yeast None (NONE) Ur Culture Indicated? Culture not set 11/17/16 11/18/16 11/19/16 Range/Units 14:11 05:36 05:00 WBC 17.33 H 17.95 H 15.20 H (4.8-10.8) 10^3/uL RBC 4.51 3.71 L 3.37 L (4.20-5.40) 10^6/uL Hgb 13.7 11.3 L 10.2 L (12.0-16.0) g/dL Hct 40.2 33.8 L 30.7 L (37.0-47.0) % MCV 89.1 91.1 91.1 (81-99) FL MCH 30.4 30.5 30.3 (27-31) PG MCHC 34.1 33.4 33.2 (33-37) g/dL RDW Std Deviation 40.9 41.7 40.8 (39-50) fL RDW Coeff of Dirk 12.9 12.9 12.7 (11.5-14.5) % Plt Count 330 266 280 (140-350) 10*3/uL MPV 8.5 8.7 9.1 (7.4-12.2) FL Immature Gran % (Auto) (0-5) % Neut % (Auto) (50-80) % Lymph % (Auto) (10-50) % Owen % (Auto) (5-15) % Eos % (Auto) (0-8) % Baso % (Auto) (0-1) % Immature Gran # (Auto) 10*3/UL Neut # (Auto) 10*3/UL Lymph # (Auto) 10*3/uL [place] # (Auto) (0.3-0.8) 10*3/UL Eos # (Auto) 10*3/UL Baso # (Auto) 10*3/UL Neutrophils % (Manual) 85 H 74 81 H (50-80) % Band Neutrophils % 0 5 8 (0-10) % Lymphocytes % (Manual) 14 11 7 L (10-50) % Monocytes % (Manual) 1 10 4 (0-12) % Eosinophils % (Manual) 0 0 0 (0-8) % Basophils % (Manual) 0 0 0 (0-1) % Metamyelocytes % 0 Not Reportable Not Reportable % Myelocytes % 0 Not Reportable Not Reportable % Promyelocytes % 0 Not Reportable Not Reportable % Blast Cells 0 Not Reportable Not Reportable (0-1) % WBC Morphology Comment See comments Normal morphology Normal morphology ( NORM) Plt Morphology Comment Normal morphology Normal morphology Normal morphology (NORM) RBC Morph Comment Normal morphology Normal morphology Normal morphology ( NORM) Sodium 136 131 L 135 (135-145) meq/L Potassium 4.4 4.0 3.6 L (3.8-5.2) meq/L Chloride 102 104 107 (98-112) meq/L Carbon Dioxide 22 L 21 L 21 L (23-33) meq/L Anion Gap 12 6 7 (5-20) BUN 11 9 7 (7-22) mg/dL Creatinine 0.8 0.7 0.7 (0.50-1.20) mg/dL Estimated GFR > 60 > 60 > 60 (>60 ml/min/1.73m(2)) BUN/Creatinine Ratio 13.75 12.85 10.00 (6-20) Glucose 115 H 105 86 (78-110) mg/dL Calculated Osmolality 281.0 270.0 276.0 (267-292) mOsm/kg Calcium 8.3 L 7.7 L 7.4 L (8.7-10.7) mg/dL Total Bilirubin 0.5 (0.3-1.2) mg/dL AST 19 (8-39) IU/L ALT 23 (9-52) IU/L Alkaline Phosphatase 48 (38-126) IU/L Total Protein 4.7 L (6.1-8.0) g/dL Albumin 2.1 L (3.5-4.8) g/dL Globulin 2.6 (2.50-4.10) g/dL Albumin/Globulin Ratio 0.80 L (1.3-2.0) mg/g Amylase (30-110) U/L Lipase (23-300) IU/L Ur Collection Type Urine Color Urine Clarity (CLEAR) Urine pH (5.0-8.5) Ur Specific [place] (1.005-1.030) Urine Protein (NEG) mg/dl Urine Glucose (UA) (NEG) mg/dL Urine Ketones (NEG) Urine Occult Blood (NEG) Urine Nitrate (NEG) Urine Bilirubin (NEG) Urine Urobilinogen (0.2) EU/dL Ur Leukocyte Esterase (NEG) Urine RBC (NONE) /hpf Urine WBC (NONE) Ur Squamous Epith Cells (NONE) Ur Renal Epithelial Cell (NONE) Urine Crystals Urine Bacteria (NONE) Urine Casts (NONE) Urine Mucus (NONE) Urine Trichomonas (NONE) Urine Yeast (NONE) Ur Culture Indicated?
--- NOTE | 2016-11-19 10:02 | PDOC(PROG) ---
Subjective Post Op Day: postop day 1 Pain Management: Epidural PROTECTION SPECIALIST Mathias Catheter: Yes Flatus: No Diet: NPO Date and Time of Service: 10 AM or 2016 Interval History: Patient states that she's feeling better. Can breathe easier. Epidural seems to work a lot better for pain control. Objective : Data - Labs CBC and BMP: 11/19/16 05:00 11/19/16 05:00 Labs - Last 24 Hours: Laboratory Results 11/19/16 Range/Units 05:00 WBC 15.20 H (4.8-10.8) 10^3/uL RBC 3.37 L (4.20-5.40) 10^6/uL Hgb 10.2 L (12.0-16.0) g/dL Hct 30.7 L (37.0-47.0) % MCV 91.1 (81-99) FL MCH 30.3 (27-31) PG MCHC 33.2 (33-37) g/dL RDW Std Deviation 40.8 (39-50) fL RDW Coeff of Dirk 12.7 (11.5-14.5) % Plt Count 280 (140-350) 10*3/uL MPV 9.1 (7.4-12.2) FL Neutrophils % (Manual) 81 H (50-80) % Band Neutrophils % 8 (0-10) % Lymphocytes % (Manual) 7 L (10-50) % Monocytes % (Manual) 4 (0-12) % Eosinophils % (Manual) 0 (0-8) % Basophils % (Manual) 0 (0-1) % Metamyelocytes % Not Reportable Myelocytes % Not Reportable Promyelocytes % Not Reportable Blast Cells Not Reportable WBC Morphology Comment Normal morphology (NORM) Plt Morphology Comment Normal morphology (NORM) RBC Morph Comment Normal morphology (NORM) Sodium 135 (135-145) meq/L Potassium 3.6 L (3.8-5.2) meq/L Chloride 107 (98-112) meq/L Carbon Dioxide 21 L (23-33) meq/L Anion Gap 7 (5-20) BUN 7 (7-22) mg/dL Creatinine 0.7 (0.50-1.20) mg/dL Estimated GFR > 60 (>60 ml/min/1.73m(2)) BUN/Creatinine Ratio 10.00 (6-20) Glucose 86 (78-110) mg/dL Calculated Osmolality 276.0 (267-292) mOsm/kg Calcium 7.4 L (8.7-10.7) mg/dL Total Bilirubin 0.5 (0.3-1.2) mg/dL AST 19 (8-39) IU/L ALT 23 (9-52) IU/L Alkaline Phosphatase 48 (38-126) IU/L Total Protein 4.7 L (6.1-8.0) g/dL Albumin 2.1 L (3.5-4.8) g/dL Globulin 2.6 (2.50-4.10) g/dL Albumin/Globulin Ratio 0.80 L (1.3-2.0) mg/g - Vital Signs Vital Signs and I&O: Vital Signs - Last Taken Temperature 98.5 F 11/19/16 07:53 Pulse Rate 124 H 11/19/16 07:53 Respiratory Rate 20 11/19/16 07:53 Blood Pressure 120/63 11/19/16 07:53 Pulse Ox 93 11/19/16 07:53 Intake and Output (24hr x 4 totals) 11/17/16 11/18/16 11/19/16 11/20/16 05:59 05:59 05:59 05:59 Intake Total 9 Output Total 720 Balance 1309 Objective : Exam - General General Appearance: No Acute Distress, Cooperative - Respiratory Respiratory Exam: Clear to Auscultation - Bilaterally, Breathing Non Labored - Cardiovascular Cardiovascular Exam: RRR, No Murmur - GI/Abdominal GI/Abdominal Exam: Non Distended, Soft Assessment and Plan - Patient Problems (1) Postoperative generalized abdominal pain Current Visit: Yes Status: Acute - Assessment / Plan Additional Assessment/Plan Details: Overall patient is doing better of late. Continue antibiotics as white count still elevated. Continue IV fluid at 150 an hour. Continue epidural catheter until a.m.
[2016-11-19] MEDS: fentaNYL 2 MCG/BUPIVACAINE 0.0625%/NS 0.9% 250 ML BAG EPIDURAL SCH ×2 (10:11→22:41)
[2016-11-19] MEDS: KETOROLAC 30 MG/1 ML VIAL IVP PRN (14:47)
[2016-11-20] MEDS: Lactated Ringers 1,000 ML PRIMARY IV SCH ×3 (01:16→10:09)
[2016-11-20 05:18] LABS: HEMATOCRIT 28.3 % (37.0-47.0); HEMOGLOBIN 9.4 g/dL (12.0-16.0); MEAN CORPUSCULAR HEMOGLOBIN 30.4 PG (27-31); MEAN CORPUSCULAR HGB CONC 33.2 g/dL (33-37); MEAN CORPUSCULAR VOLUME 91.6 FL (81-99); RED BLOOD COUNT 3.09 10^6/uL (4.20-5.40)
[2016-11-20 05:29] LABS: BLOOD UREA NITROGEN 6 mg/dL (7-22); CALCIUM 7.6 mg/dL (8.7-10.7); EST GLOMERULAR FILTRATION > 60 (>60 ml/min/1.73m(2))
[2016-11-20 05:41] LABS: BAND NEUTROPHILS % 3 % (0-10); BASOPHILS % (MANUAL) 0 % (0-1); EOSINOPHILS % (MANUAL) 1 % (0-8); LYMPHOCYTES % (MANUAL) 7 % (10-50); MONOCYTES % (MANUAL) 9 % (0-12); NEUTROPHILS % (MANUAL) 80 % (50-80); PLATELET MORPHOLOGY COMMENT NORMAL MORPHOLOGY (NORM); RBC MORPHOLOGY COMMENT NORMAL MORPHOLOGY (NORM); WBC MORPHOLOGY COMMENT NORMAL MORPHOLOGY (NORM)
[2016-11-20] MEDS: Ertapenem Inj 1 GM in Sodium Chloride 0.9% 100 ML IV SCH (08:01)
[2016-11-20] MEDS ORDERED: NALOXONE 0.4 MG/1 ML VIAL IVP PRN (08:04)
[2016-11-20] MEDS ORDERED: PCA-Peripheral (Reflex Set) 1 EACH MIS IV PRN (08:04)
[2016-11-20] MEDS ORDERED: LIDOCAINE W/ SODIUM BICARB 0.5 ML SYR ONE (11:17)
--- NOTE | 2016-11-20 14:21 | DI ---
AVA, 11/18/2016 1:30 PM: Clinical History: Perforated bowel. Status post NG tube placement. Verification of NG tube location. Previous Exam: None at this facility. The examination is performed on 2 different films in these were taken at 1343 hours and 1346 hours, r espectively. Between the 2 films, additional surgical skin martina were placed in the midline of the abdomen. There is anasarca. Bowel gas pattern, psoas margins, and flank stripes are normal. There is no free air or fluid. The nasogastric tube tip is in the fundus of the stomach. The right diaphragm i s elevated. Reading: Anasarca. The exam is otherwise unremarkable. The nasogastric tube tip is in the fundus of the stomac h.
--- NOTE | 2016-11-20 15:36 | CRNA.PROGR ---
Anesthesia Note Anesthesia Progress Note: Epidural was stopped about 10:00am and iv shortage worker resumed. After resolution of epidural it was DC'd by poultry boner intact, see note. She has no questions or concerns at this time regarding her anesthetic course and epidural for post op analgesia. She is currently ambulating with assistance. Laboratory Results 11/16/16 11/16/16 11/17/16 Range/Units 22:01 22:45 04:47 WBC 19.84 H 17.45 H (4.8-10.8) 10^3/uL RBC 4.41 4.51 (4.20-5.40) 10^6/uL Hgb 13.4 13.6 (12.0-16.0) g/dL Hct 38.3 39.6 (37.0-47.0) % MCV 86.8 87.8 (81-99) FL MCH 30.4 30.2 (27-31) PG MCHC 35.0 34.3 (33-37) g/dL RDW Std Deviation 37.9 L 39.1 (39-50) fL RDW Coeff of Dirk 12.3 12.6 (11.5-14.5) % Plt Count 323 353 H (140-350) 10*3/uL MPV 8.3 9.2 (7.4-12.2) FL Immature Gran % (Auto) 0.2 0.2 (0-5) % Neut % (Auto) 90.5 H 88.2 H (50-80) % Lymph % (Auto) 2.9 L 5.0 L (10-50) % [place] % (Auto) 6.3 6.4 (5-15) % Eos % (Auto) 0 0.1 (0-8) % Baso % (Auto) 0.1 0.1 (0-1) % Immature Gran # (Auto) 0.04 0.04 10*3/UL Neut # (Auto) 17.97 15.41 10*3/UL Lymph # (Auto) 0.58 0.87 10*3/uL [place] # (Auto) 1.24 H 1.11 H (0.3-0.8) 10*3/UL Eos # (Auto) 0 0.01 10*3/UL Baso # (Auto) 0.01 0.01 10*3/UL Neutrophils % (Manual) (50-80) % Band Neutrophils % (0-10) % Lymphocytes % (Manual) (10-50) % Monocytes % (Manual) (0-12) % Eosinophils % (Manual) (0-8) % Basophils % (Manual) (0-1) % Metamyelocytes % % Myelocytes % % Promyelocytes % % Blast Cells (0-1) % WBC Morphology Comment Normal morphology Normal morphology (NORM) Plt Morphology Comment Normal morphology Normal morphology (NORM) RBC Morph Comment Normal morphology Normal morphology (NORM) Sodium 132 L (135-145) meq/L Potassium 3.9 (3.8-5.2) meq/L Chloride 102 (98-112) meq/L Carbon Dioxide 20 L (23-33) meq/L Anion Gap 10 (5-20) BUN 9 (7-22) mg/dL Creatinine 0.7 (0.50-1.20) mg/dL Estimated GFR > 60 (>60 ml/min/1.73m(2)) BUN/Creatinine Ratio 12.85 (6-20) Glucose 132 H (78-110) mg/dL Calculated Osmolality 274.0 (267-292) mOsm/kg Calcium 8.6 L (8.7-10.7) mg/dL Total Bilirubin 1.0 (0.3-1.2) mg/dL AST 30 (8-39) IU/L ALT 26 (9-52) IU/L Alkaline Phosphatase 46 (38-126) IU/L Total Protein 7.2 (6.1-8.0) g/dL Albumin 4.0 (3.5-4.8) g/dL Globulin 3.2 (2.50-4.10) g/dL Albumin/Globulin Ratio 1.20 L (1.3-2.0) mg/g Amylase 169 H (30-110) U/L Lipase 128 (23-300) IU/L Ur Collection Type Cath specimen Urine Color Yellow Urine Clarity Clear (CLEAR) Urine pH 7.0 (5.0-8.5) Ur Specific [place] 1.010 (1.005-1.030) Urine Protein Negative (NEG) mg/dl Urine Glucose (UA) Negative (NEG) mg/dL Urine Ketones Trace (NEG) Urine Occult Blood Small H (NEG) Urine Nitrate Negative (NEG) Urine Bilirubin Negative (NEG) Urine Urobilinogen 0.2 (0.2) EU/dL Ur Leukocyte Esterase Negative (NEG) Urine RBC 9-14 (NONE) /hpf Urine WBC None (NONE) Ur Squamous Epith Cells Few (NONE) Ur Renal Epithelial Cell None (NONE) Urine Crystals None Urine Bacteria None (NONE) Urine Casts None (NONE) Urine Mucus Moderate (NONE) Urine Trichomonas None (NONE) Urine Yeast None (NONE) Ur Culture Indicated? Culture not set 11/17/16 11/18/16 11/19/16 Range/Units 14:11 05:36 05:00 WBC 17.33 H 17.95 H 15.20 H (4.8-10.8) 10^3/uL RBC 4.51 3.71 L 3.37 L (4.20-5.40) 10^6/uL Hgb 13.7 11.3 L 10.2 L (12.0-16.0) g/dL Hct 40.2 33.8 L 30.7 L (37.0-47.0) % MCV 89.1 91.1 91.1 (81-99) FL MCH 30.4 30.5 30.3 (27-31) PG MCHC 34.1 33.4 33.2 (33-37) g/dL RDW Std Deviation 40.9 41.7 40.8 (39-50) fL RDW Coeff of Dirk 12.9 12.9 12.7 (11.5-14.5) % Plt Count 330 266 280 (140-350) 10*3/uL MPV 8.5 8.7 9.1 (7.4-12.2) FL Immature Gran % (Auto) (0-5) % Neut % (Auto) (50-80) % Lymph % (Auto) (10-50) % [place] % (Auto) (5-15) % Eos % (Auto) (0-8) % Baso % (Auto) (0-1) % Immature Gran # (Auto) 10*3/UL Neut # (Auto) 10*3/UL Lymph # (Auto) 10*3/uL [place] # (Auto) (0.3-0.8) 10*3/UL Eos # (Auto) 10*3/UL Baso # (Auto) 10*3/UL Neutrophils % (Manual) 85 H 74 81 H (50-80) % Band Neutrophils % 0 5 8 (0-10) % Lymphocytes % (Manual) 14 11 7 L (10-50) % Monocytes % (Manual) 1 10 4 (0-12) % Eosinophils % (Manual) 0 0 0 (0-8) % Basophils % (Manual) 0 0 0 (0-1) % Metamyelocytes % 0 Not Reportable Not Reportable % Myelocytes % 0 Not Reportable Not Reportable % Promyelocytes % 0 Not Reportable Not Reportable % Blast Cells 0 Not Reportable Not Reportable (0-1) % WBC Morphology Comment See comments Normal morphology Normal morphology ( NORM) Plt Morphology Comment Normal morphology Normal morphology Normal morphology (NORM) RBC Morph Comment Normal morphology Normal morphology Normal morphology ( NORM) Sodium 136 131 L 135 (135-145) meq/L Potassium 4.4 4.0 3.6 L (3.8-5.2) meq/L Chloride 102 104 107 (98-112) meq/L Carbon Dioxide 22 L 21 L 21 L (23-33) meq/L Anion Gap 12 6 7 (5-20) BUN 11 9 7 (7-22) mg/dL Creatinine 0.8 0.7 0.7 (0.50-1.20) mg/dL Estimated GFR > 60 > 60 > 60 (>60 ml/min/1.73m(2)) BUN/Creatinine Ratio 13.75 12.85 10.00 (6-20) Glucose 115 H 105 86 (78-110) mg/dL Calculated Osmolality 281.0 270.0 276.0 (267-292) mOsm/kg Calcium 8.3 L 7.7 L 7.4 L (8.7-10.7) mg/dL Total Bilirubin 0.5 (0.3-1.2) mg/dL AST 19 (8-39) IU/L ALT 23 (9-52) IU/L Alkaline Phosphatase 48 (38-126) IU/L Total Protein 4.7 L (6.1-8.0) g/dL Albumin 2.1 L (3.5-4.8) g/dL Globulin 2.6 (2.50-4.10) g/dL Albumin/Globulin Ratio 0.80 L (1.3-2.0) mg/g Amylase (30-110) U/L Lipase (23-300) IU/L Ur Collection Type Urine Color Urine Clarity (CLEAR) Urine pH (5.0-8.5) Ur Specific [place] (1.005-1.030) Urine Protein (NEG) mg/dl Urine Glucose (UA) (NEG) mg/dL Urine Ketones (NEG) Urine Occult Blood (NEG) Urine Nitrate (NEG) Urine Bilirubin (NEG) Urine Urobilinogen (0.2) EU/dL Ur Leukocyte Esterase (NEG) Urine RBC (NONE) /hpf Urine WBC (NONE) Ur Squamous Epith Cells (NONE) Ur Renal Epithelial Cell (NONE) Urine Crystals Urine Bacteria (NONE) Urine Casts (NONE) Urine Mucus (NONE) Urine Trichomonas (NONE) Urine Yeast (NONE) Ur Culture Indicated? 11/20/16 Range/Units 04:24 WBC 15.34 H (4.8-10.8) 10^3/uL RBC 3.09 L (4.20-5.40) 10^6/uL Hgb 9.4 L (12.0-16.0) g/dL Hct 28.3 L (37.0-47.0) % MCV 91.6 (81-99) FL MCH 30.4 (27-31) PG MCHC 33.2 (33-37) g/dL RDW Std Deviation 40.9 (39-50) fL RDW Coeff of Dirk 12.6 (11.5-14.5) % Plt Count 297 (140-350) 10*3/uL MPV 9.0 (7.4-12.2) FL Immature Gran % (Auto) (0-5) % Neut % (Auto) (50-80) % Lymph % (Auto) (10-50) % [place] % (Auto) (5-15) % Eos % (Auto) (0-8) % Baso % (Auto) (0-1) % Immature Gran # (Auto) 10*3/UL Neut # (Auto) 10*3/UL Lymph # (Auto) 10*3/uL [place] # (Auto) (0.3-0.8) 10*3/UL Eos # (Auto) 10*3/UL Baso # (Auto) 10*3/UL Neutrophils % (Manual) 80 (50-80) % Band Neutrophils % 3 (0-10) % Lymphocytes % (Manual) 7 L (10-50) % Monocytes % (Manual) 9 (0-12) % Eosinophils % (Manual) 1 (0-8) % Basophils % (Manual) 0 (0-1) % Metamyelocytes % Not Reportable % Myelocytes % Not Reportable % Promyelocytes % Not Reportable % Blast Cells Not Reportable (0-1) % WBC Morphology Comment Normal morphology (NORM) Plt Morphology Comment Normal morphology (NORM) RBC Morph Comment Normal morphology (NORM) Sodium 134 L (135-145) meq/L Potassium 3.2 L (3.8-5.2) meq/L Chloride 106 (98-112) meq/L Carbon Dioxide 22 L (23-33) meq/L Anion Gap 6 (5-20) BUN 6 L (7-22) mg/dL Creatinine 0.6 (0.50-1.20) mg/dL Estimated GFR > 60 (>60 ml/min/1.73m(2)) BUN/Creatinine Ratio 10.00 (6-20) Glucose 73 L (78-110) mg/dL Calculated Osmolality 274.0 (267-292) mOsm/kg Calcium 7.6 L (8.7-10.7) mg/dL Total Bilirubin (0.3-1.2) mg/dL AST (8-39) IU/L ALT (9-52) IU/L Alkaline Phosphatase (38-126) IU/L Total Protein (6.1-8.0) g/dL Albumin (3.5-4.8) g/dL Globulin (2.50-4.10) g/dL Albumin/Globulin Ratio (1.3-2.0) mg/g Amylase (30-110) U/L Lipase (23-300) IU/L Ur Collection Type Urine Color Urine Clarity (CLEAR) Urine pH (5.0-8.5) Ur Specific [place] (1.005-1.030) Urine Protein (NEG) mg/dl Urine Glucose (UA) (NEG) mg/dL Urine Ketones (NEG) Urine Occult Blood (NEG) Urine Nitrate (NEG) Urine Bilirubin (NEG) Urine Urobilinogen (0.2) EU/dL Ur Leukocyte Esterase (NEG) Urine RBC (NONE) /hpf Urine WBC (NONE) Ur Squamous Epith Cells (NONE) Ur Renal Epithelial Cell (NONE) Urine Crystals Urine Bacteria (NONE) Urine Casts (NONE) Urine Mucus (NONE) Urine Trichomonas (NONE) Urine Yeast (NONE) Ur Culture Indicated? Vital Signs (24 hrs) Temp Pulse Pulse Resp Resp BP BP 11/20/16 15:31 11/20/16 14:11 16 11/20/16 12:57 98 F 120 H 14 128/84 11/20/16 12:00 16 11/20/16 11:10 11/20/16 07:43 99.1 F 114 H 16 138/85 11/20/16 07:00 118 H 120 H 11/20/16 05:00 16 11/20/16 04:58 97.6 F 115 H 23 129/90 11/20/16 03:54 11/20/16 03:00 16 11/20/16 01:00 97.8 F 112 H 20 127/82 11/20/16 00:57 14 11/19/16 23:00 11/19/16 22:41 16 11/19/16 21:00 98.0 F 120 H 17 17 119/85 11/19/16 19:00 120 H 124 H 16 11/19/16 17:00 98.4 F 123 H 22 128/75 Pulse Ox 11/20/16 15:31 97 11/20/16 14:11 11/20/16 12:57 96 11/20/16 12:00 11/20/16 11:10 98 11/20/16 07:43 98 11/20/16 07:00 98 11/20/16 05:00 11/20/16 04:58 99 11/20/16 03:54 2 11/20/16 03:00 94 11/20/16 01:00 97 11/20/16 00:57 11/19/16 23:00 96 11/19/16 22:41 11/19/16 21:00 96 11/19/16 19:00 94 11/19/16 17:00 97
[2016-11-20] MEDS: MORPHINE SULFATE/PF PCA 30 MG/30 ML IV SCH (19:03)
[2016-11-21] MEDS: Lactated Ringers 1,000 ML PRIMARY IV SCH ×5 (02:02→18:18)
[2016-11-21 05:13] LABS: HEMATOCRIT 30.9 % (37.0-47.0); HEMOGLOBIN 10.4 g/dL (12.0-16.0); MEAN CORPUSCULAR HEMOGLOBIN 30.3 PG (27-31); MEAN CORPUSCULAR HGB CONC 33.7 g/dL (33-37); MEAN CORPUSCULAR VOLUME 90.1 FL (81-99); MEAN PLATELET VOLUME 8.7 FL (7.4-12.2); RED BLOOD COUNT 3.43 10^6/uL (4.20-5.40)
[2016-11-21 05:19] LABS: PLATELET MORPHOLOGY COMMENT NORMAL MORPHOLOGY (NORM); RBC MORPHOLOGY COMMENT NORMAL MORPHOLOGY (NORM); WBC MORPHOLOGY COMMENT NORMAL MORPHOLOGY (NORM)
[2016-11-21 05:23] LABS: BLOOD UREA NITROGEN 3 mg/dL (7-22); CALCIUM 8.2 mg/dL (8.7-10.7); EST GLOMERULAR FILTRATION > 60 (>60 ml/min/1.73m(2))
[2016-11-21 05:43] LABS: BAND NEUTROPHILS % 0 % (0-10); BASOPHILS % (MANUAL) 0 % (0-1); EOSINOPHILS % (MANUAL) 1 % (0-8); LYMPHOCYTES % (MANUAL) 15 % (10-50); MONOCYTES % (MANUAL) 4 % (0-12); NEUTROPHILS % (MANUAL) 80 % (50-80)
[2016-11-21] MEDS: MORPHINE SULFATE/PF PCA 30 MG/30 ML IV SCH ×2 (06:49→20:18)
[2016-11-21] MEDS: Ertapenem Inj 1 GM in Sodium Chloride 0.9% 100 ML IV SCH (07:58)
[2016-11-21] MEDS ORDERED: Potassium Chloride 20 mEq 20 MEQ in Premix 1 BAG IV ONE (08:16)
--- NOTE | 2016-11-21 13:47 | PDOC(PROG) ---
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 As tolerating diet. Passing gas but no bowel movement. No nausea vomiting. No fever or chills Objective : Data - Labs CBC and BMP: 11/21/16 04:41 11/21/16 04:41 Labs - Last 24 Hours: Laboratory Results 11/21/16 Range/Units 04:41 WBC 13.16 H (4.8-10.8) 10^3/uL RBC 3.43 L (4.20-5.40) 10^6/uL Hgb 10.4 L (12.0-16.0) g/dL Hct 30.9 L (37.0-47.0) % MCV 90.1 (81-99) FL MCH 30.3 (27-31) PG MCHC 33.7 (33-37) g/dL RDW Std Deviation 40.3 (39-50) fL RDW Coeff of Dirk 12.7 (11.5-14.5) % Plt Count 384 H (140-350) 10*3/uL MPV 8.7 (7.4-12.2) FL Neutrophils % (Manual) 80 (50-80) % Band Neutrophils % 0 (0-10) % Lymphocytes % (Manual) 15 (10-50) % Monocytes % (Manual) 4 (0-12) % Eosinophils % (Manual) 1 (0-8) % Basophils % (Manual) 0 (0-1) % Metamyelocytes % Not Reportable Myelocytes % Not Reportable Promyelocytes % Not Reportable Blast Cells Not Reportable WBC Morphology Comment Normal morphology (NORM) Plt Morphology Comment Normal morphology (NORM) RBC Morph Comment Normal morphology (NORM) Sodium 137 (135-145) meq/L Potassium 2.8 L (3.8-5.2) meq/L Chloride 103 (98-112) meq/L Carbon Dioxide 24 (23-33) meq/L Anion Gap 10 (5-20) BUN 3 L (7-22) mg/dL Creatinine 0.5 (0.50-1.20) mg/dL Estimated GFR > 60 (>60 ml/min/1.73m(2)) BUN/Creatinine Ratio 6.00 (6-20) Glucose 93 (78-110) mg/dL Calculated Osmolality 280.0 (267-292) mOsm/kg Calcium 8.2 L (8.7-10.7) mg/dL Magnesium 1.8 (1.6-2.4) mg/dL - Vital Signs Vital Signs and I&O: Vital Signs - Last Taken Temperature 98.6 F 11/21/16 11:34 Pulse Rate 112 H 11/21/16 11:34 Respiratory Rate 20 11/21/16 11:34 Blood Pressure 136/90 11/21/16 11:34 Pulse Ox 97 11/21/16 11:34 Intake and Output (24hr x 4 totals) 11/19/16 11/20/16 11/21/16 11/22/16 05:59 05:59 05:59 05:59 Intake Total 9 3499 3849 Output Total 720 1600 5700 1700 Balance 1309 [phone] -1700 Objective : Exam - General General Appearance: No Acute Distress, Cooperative - Eye Eye Exam: PERRL, EOMI - Respiratory Respiratory Exam: Clear to Auscultation - Bilaterally, Breathing Non Labored - Cardiovascular Cardiovascular Exam: RRR, No Murmur - GI/Abdominal GI/Abdominal Exam: Non Tender, Non Distended, Soft Assessment and Plan - Patient Problems (1) Postoperative generalized abdominal pain Current Visit: Yes Status: Acute - Assessment / Plan Additional Assessment/Plan Details: Patient's potassium is low today will replace. Will advance diet. Continue antibiotics as white count is elevated.
--- NOTE | 2016-11-21 13:48 | PDOC(PROG) ---
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 Her abdomen is nontender. Objective : Data - Labs CBC and BMP: 11/21/16 04:41 11/21/16 04:41 Labs - Last 24 Hours: Laboratory Results 11/21/16 Range/Units 04:41 WBC 13.16 H (4.8-10.8) 10^3/uL RBC 3.43 L (4.20-5.40) 10^6/uL Hgb 10.4 L (12.0-16.0) g/dL Hct 30.9 L (37.0-47.0) % MCV 90.1 (81-99) FL MCH 30.3 (27-31) PG MCHC 33.7 (33-37) g/dL RDW Std Deviation 40.3 (39-50) fL RDW Coeff of Dirk 12.7 (11.5-14.5) % Plt Count 384 H (140-350) 10*3/uL MPV 8.7 (7.4-12.2) FL Neutrophils % (Manual) 80 (50-80) % Band Neutrophils % 0 (0-10) % Lymphocytes % (Manual) 15 (10-50) % Monocytes % (Manual) 4 (0-12) % Eosinophils % (Manual) 1 (0-8) % Basophils % (Manual) 0 (0-1) % Metamyelocytes % Not Reportable Myelocytes % Not Reportable Promyelocytes % Not Reportable Blast Cells Not Reportable WBC Morphology Comment Normal morphology (NORM) Plt Morphology Comment Normal morphology (NORM) RBC Morph Comment Normal morphology (NORM) Sodium 137 (135-145) meq/L Potassium 2.8 L (3.8-5.2) meq/L Chloride 103 (98-112) meq/L Carbon Dioxide 24 (23-33) meq/L Anion Gap 10 (5-20) BUN 3 L (7-22) mg/dL Creatinine 0.5 (0.50-1.20) mg/dL Estimated GFR > 60 (>60 ml/min/1.73m(2)) BUN/Creatinine Ratio 6.00 (6-20) Glucose 93 (78-110) mg/dL Calculated Osmolality 280.0 (267-292) mOsm/kg Calcium 8.2 L (8.7-10.7) mg/dL Magnesium 1.8 (1.6-2.4) mg/dL - Vital Signs Vital Signs and I&O: Vital Signs - Last Taken Temperature 98.6 F 11/21/16 11:34 Pulse Rate 112 H 11/21/16 11:34 Respiratory Rate 20 11/21/16 11:34 Blood Pressure 136/90 11/21/16 11:34 Pulse Ox 97 11/21/16 11:34 Intake and Output (24hr x 4 totals) 11/19/16 11/20/16 11/21/16 11/22/16 05:59 05:59 05:59 05:59 Intake Total 9 3499 3849 Output Total 720 1600 5700 1700 Balance [phone] -[phone] -[phone] Objective : Exam - GI/Abdominal GI/Abdominal Exam: Non Tender, Non Distended, Soft (Incisions clean dry nonerythematous) Assessment and Plan - Patient Problems (1) Postoperative generalized abdominal pain Current Visit: Yes Status: Acute - Assessment / Plan Additional Assessment/Plan Details: Patient white count still elevated 15,000. We'll continue antibiotics. Start on clear liquid diet.
[2016-11-22] MEDS: Lactated Ringers 1,000 ML PRIMARY IV SCH ×3 (02:00→22:44)
[2016-11-22 05:23] LABS: HEMATOCRIT 30.7 % (37.0-47.0); HEMOGLOBIN 10.3 g/dL (12.0-16.0); MEAN CORPUSCULAR HEMOGLOBIN 29.7 PG (27-31); MEAN CORPUSCULAR HGB CONC 33.6 g/dL (33-37); MEAN CORPUSCULAR VOLUME 88.5 FL (81-99); RED BLOOD COUNT 3.47 10^6/uL (4.20-5.40)
[2016-11-22 05:36] LABS: BLOOD UREA NITROGEN 3 mg/dL (7-22); CALCIUM 8.1 mg/dL (8.7-10.7); EST GLOMERULAR FILTRATION > 60 (>60 ml/min/1.73m(2))
[2016-11-22] MEDS: Ertapenem Inj 1 GM in Sodium Chloride 0.9% 100 ML IV SCH (07:57)
[2016-11-22] MEDS ORDERED: MORPHINE SULFATE 2 MG/1 ML IVP PRN (12:07)
--- NOTE | 2016-11-22 12:10 | PDOC(PROG) ---
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 Has an incisional pain. Still passing gas. No nausea vomiting. No fevers. Objective : Data - Labs CBC and BMP: 11/22/16 05:19 11/22/16 05:19 Labs - Last 24 Hours: Laboratory Results 11/22/16 Range/Units 05:19 WBC 9.62 (4.8-10.8) 10^3/uL RBC 3.47 L (4.20-5.40) 10^6/uL Hgb 10.3 L (12.0-16.0) g/dL Hct 30.7 L (37.0-47.0) % MCV 88.5 (81-99) FL MCH 29.7 (27-31) PG MCHC 33.6 (33-37) g/dL RDW Std Deviation 39.2 (39-50) fL RDW Coeff of Dirk 12.5 (11.5-14.5) % Plt Count 420 H (140-350) 10*3/uL MPV 8.0 (7.4-12.2) FL Sodium 136 (135-145) meq/L Potassium 3.1 L (3.8-5.2) meq/L Chloride 100 (98-112) meq/L Carbon Dioxide 25 (23-33) meq/L Anion Gap 11 (5-20) BUN 3 L (7-22) mg/dL Creatinine 0.5 (0.50-1.20) mg/dL Estimated GFR > 60 (>60 ml/min/1.73m(2)) BUN/Creatinine Ratio 6.00 (6-20) Glucose 96 (78-110) mg/dL Calculated Osmolality 278.0 (267-292) mOsm/kg Calcium 8.1 L (8.7-10.7) mg/dL - Vital Signs Vital Signs and I&O: Vital Signs - Last Taken Temperature 97.5 F 11/22/16 08:01 Pulse Rate 107 H 11/22/16 08:01 Respiratory Rate 18 11/22/16 08:01 Blood Pressure 121/82 11/22/16 08:01 Pulse Ox 94 11/22/16 11:21 Intake and Output (24hr x 4 totals) 11/20/16 11/21/16 11/22/16 11/23/16 05:59 05:59 05:59 05:59 Intake Total 3499 3849 3872 Output Total 1600 5700 5550 900 Balance 4969 -1851 -1678 -900 Objective : Exam - General General Appearance: No Acute Distress, Cooperative - Eye Eye Exam: PERRL, EOMI - GI/Abdominal GI/Abdominal Exam: Non Tender, Non Distended, Soft Additional GI/Abdominal Exam Details: Incision clean dry no drainage. 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 Await return of bowel movements.
[2016-11-22] MEDS: HYDROcodone-APAP 7.5 MG-325 MG TABLET PO PRN ×2 (16:06→20:14)
[2016-11-22] MEDS: KETOROLAC 30 MG/1 ML VIAL IVP PRN (16:07)
[2016-11-23] MEDS: HYDROcodone-APAP 7.5 MG-325 MG TABLET PO PRN ×4 (00:04→13:21)
[2016-11-23] MEDS: KETOROLAC 30 MG/1 ML VIAL IVP PRN ×2 (00:05→08:53)
[2016-11-23] MEDS: LORazepam 2 MG/1 ML VIAL IVP PRN (00:10)
[2016-11-23 06:49] VITALS: RESP 18
[2016-11-23] MEDS: Ertapenem Inj 1 GM in Sodium Chloride 0.9% 100 ML IV SCH (08:54)
[2016-11-23 11:46] VITALS: TEMP 97.5
--- NOTE | 2016-11-23 12:45 | DCSUMMARY ---
Discharge Summary Admit Date: 11/17/16 Discharge Date: 11/23/16 Admitting Diagnosis: postoperative pain Discharge Diagnosis: Perforated small bowel Primary Surgery and Date: 01/18/2017 patient had exploratory laparotomy and small bowel resection with primary anastomosis Hospital Course: Patient is admitted to the hospital with postoperative pain. She was observed for 24 hours and on IV antibiotics. She was not improving therefore she went under a diagnostic laparoscopy. It is evident that patient had what appeared be a small bowel perforation she is converted to an open surgery. There was 2 holes in the small bowel. She has small bowel resection with primary anastomosis. Post operatively patient did very well. She is just slowly resolving ileus. She was tolerating diet and passing flatus. Abdomen soft nontender. Her white count was within normal limits. She was DC'd on Invanz and day of discharge. She was discharged in stable condition. Exam - Vitals Vital Signs: Vital Signs Temperature 97.5 F Temperature Source Temporal Artery Scan Pulse Rate [Apical] 90 Pulse Rate [Pulse Oximeter] 99 Pulse Rate 90 Respiratory Rate [Right Lower 16 Abdomen] Respiratory Rate 18 Blood Pressure [Right Arm] 124/91 Blood Pressure [Left Arm] 133/82 Blood Pressure 134/77 Pulse Ox 95 Oxygen Flow Rate [Right Lower 1 Abdomen] Oxygen Flow Rate 1 Oxygen Flow Rate 3 Oxygen Delivery Method Nasal Cannula Height 5 ft 1 in Weight 72.847 kg - General General Appearance: POSITIVE: No Acute Distress, Cooperative - Eye Eye Exam: POSITIVE: PERRL, EOMI - Neck Neck Exam: POSITIVE: Normal Inspection, Full ROM - Respiratory Respiratory Exam: POSITIVE: Clear to Auscultation - Bilaterally, Breathing Non Labored - GI/Abdominal GI/Abdominal Exam: POSITIVE: Normal Bowel Sounds, Non Tender, Non Distended, Soft Patient Problems - Patient Problem List (1) Postoperative generalized abdominal pain Current Visit: Yes Status: Acute
== END 2016-11-23 15:12 | disposition home or self-care (01) | DRG 907 ==
LOC: ER 21:15 → MED/SURG 23:24 → OPS 11-18 10:37 → OBSVTOIN 11-18 13:49 → MED/SURG 11-18 14:05
PROVIDERS: ADMIT Emergency Medicine; ATTEND Surgery
PROC: 0DT80ZZ Resection of Small Intestine, Open Approach (ICD-10-PCS; principal; 2016-11-18 10:15)
DX: K91.71 Accidental puncture and laceration of a digestive system organ or structure during a digestive system procedure (principal); K65.8 Other peritonitis; Y83.8 Other surgical procedures as the cause of abnormal reaction of the patient, or of later complication, without mention of misadventure at the time of the procedure
CPT/HCPCS: 36415; 74000; 74177; 80048; 80053; 81001; 81003; 82150; 83690; 83735; 85007; 85025; 85027; 94150; 94761; 96361; 96374; 96375; 99284; J0131; J1170; J1335; J1885; J2001; J2060; J2250; J2270; J2405; J2550; J3010; J3480; J3490; J7030; J7050; J7120